=== PATIENT | male | born 1965 | race Caucasian/White ===

== ENCOUNTER 2024-02-04 17:28 | Emergency (ER) | payer BC, SELFPAY ==
[2024-02-04] VITALS (7 sets, daily range): BP systolic 123–139; BP diastolic 77–92; BMI 32.0
--- NOTE | 2024-02-04 18:11 | ED.GENMED ---
History of Present Illness
General
Chief Complaint: Chest Pain
Source: patient
Exam Limitations: none
Time Seen by Provider: 02/04/24 17:53
History of Present Illness
History of Present Illness:
This is a 58 year old male that comes in with multiple complaints. State that he awoke this morning at 9:30am and he took his shower. After his shower he started to feel lightheaded like he was going to fall over. States that then at 4pm he started
with this left sided chest pain that lasted an hour. States that he has had this before and he took Gas-X and this seemed to go away. Patient has no pain at this time. States that for the past 4-5 days he is also had a headache in his mid forehead.
States that he also has pain in the left thigh for the past 2 days. States that he has been SOB and just not felt right since there [place] in [place] States that he is also weaning off of his Oxycodone and he is down to 3 tablets from 8 tabs. Denies
any fever, chills, abd pain, nausea, vomiting, diarrhea, urinary burning.
Past History
Past History
ED Past Medical History: Cancer (Melanoma), GERD, HTN and Other (Back pain , Fatty liver, )
ED Past Surgical History: Appendectomy, Cholecystectomy, Orthopedic (Left femur surgery, Right shoulder lipoma removed. Rhizotomy lumbar spine) and Urological (Vasectomy)
Social History
Tobacco: Non-smoker
Alcohol: Occasional
Personal:
Living: with family
Review of Systems
Review of Systems
All Other Systems: ROS reviewed and negative except as documented in HPI and ROS
Constitutional: Reports no symptoms; Denies fever or chills
EENT: Reports no symptoms
Respiratory: Reports trouble breathing; Denies cough
Cardiac: Reports chest pain
ABD/GI: Denies abdominal pain, nausea, vomiting or diarrhea
: Reports no symptoms; Denies dysuria, frequency or urgency
Musculoskeletal: Reports no symptoms
Skin: Reports no symptoms
Neurological: Reports headache and other (Lightheaded); Denies dizzy
Psychiatric: Reports no symptoms
Phy Exam
General Physical Exam
General Presentation: well appearing and no apparent distress
General age: appears stated age
General Skin: warm and dry
General Habitus: normal
General Mental: alert
General Hydration: dry mucous membranes
ENT Exam
ENT Exam: TM's normal, pharynx normal and neck supple
Eye Exam
Eye Exam: EOMI
Cardiovascular Exam
Cardiovascular Exam: regular rate/rhythm, no edema, no murmur and normal peripheral pulses
Pulmonary Exam
Pulmonary Exam: lungs clear, no respiratory distress, no rales, chest non tender, no crackles, no rhonchi, no wheezing and no cough
Gastrointestinal Exam
Gastrointestinal Exam: normal bowel sounds, non tender, soft, no organomegaly, no pulsatile mass and non distended
Musculoskeletal Exam
Musculoskeletal Exam: full ROM, no edema and other (left leg negative for any redness or swelling)
Skin Exam
Skin Exam: normal color, warm/dry, no rash and no petechia
Psychiatric Exam
Psychiatric Exam: normal mood/affect
Scores
Heart Score for Chest Pain Patients
STEMI patient?: No
History: Slightly or Non-Suspicious
ECG: Normal
Age: >45 - <65 years
Risk Factors: No Risk Factors
Troponin: </= Normal Limit
Heart Score for Chest Pain Patients: 1
Heart Score Risk: 2.5% MACE over next 6 weeks
Course
Orders/Labs/Results
Orders:
Orders
02/04/24 17:30
Electrocardiogram (*1) Urgent
Reason for Study: Chest Pain
EKG- Treatment ONCE
02/04/24 18:10
CT Head W/o Iv Contrast Urgent
Comment:
Reason For Exam: Headache
0.9% Sodium Chloride 1000 ml [Nss] 1,000 ml IV BOLUS
US Legs, Left [US Periph Venous LOWER Ext LT] Urgent
Comment:
Reason For Exam: Pain left medial thigh
02/04/24 18:32
Complete Blood Count/With Diff Urgent
Comprehensive Metabolic Panel Urgent
D-Dimer Urgent
Manual Differential Urgent
Troponin I Urgent
02/04/24 19:03
CT Chest Pe Study Urgent
Comment:
Reason For Exam: Chest pain, elevated D-dimer
Abnormal Lab Results
02/04/24
18:32
RBC 4.65 L 10^6/uL
(4.70-6.10)
Hct 37.6 L %
(39.0-52.0)
D-Dimer 0.53 H ug/mlFEU
(0.00-0.50)
Potassium 3.4 L mmol/L
(3.5-5.1)
Glucose 135 H mg/dl
(70-99)
AST 67 H U/L
(17-59)
ALT 89 H U/L
(0-50)
Alkaline Phosphatase 170 H U/L
(38-126)
02/04/24 18:32
02/04/24 18:32
D-dimer slightly elevated at 0.53, Troponin <0.012, Glucose nonfasting. AST/ALT elevation (fatty liver), Alk phos elevation.
Vital Signs
Initial and Last Documented VS:
Initial Vital Signs
Temp Pulse Resp BP Pulse Ox
98.1 F 96 18 134/85 96
02/04/24 17:38 02/04/24 17:38 02/04/24 17:38 02/04/24 17:38 02/04/24 17:38
Last Documented Vital Signs
Temp Pulse Resp BP Pulse Ox
98.3 F 94 20 139/92 96
02/04/24 19:09 02/04/24 20:15 02/04/24 20:15 02/04/24 20:15 02/04/24 20:15
MDM/Problems Addressed
Differential Diagnosis Includes:
DVT, PE, GERD,
MDM/Problems Addressed:
This is a 58 year old male that comes in with multiple complaints. Patient c/o chest pain ,headache, left leg pain and SOB.
Will get labs, CT head and US leg.
Back into see patient. Reviewed labs. CT head, CT chest and US. Patient has no fever, cough or WBC count. Do not feel that this is a Pneumonia. Patient encouraged to watch for these things and if anything developed he will need to see his PCP.
Explained that this could be COPD. Patient to return with any concerns.
Chronic conditions affecting care:
GERD
Acute Exacerbation and/or Progression of Chronic Illness:
GERD
*Radiology
Radiology exam reviewed: radiology read reviewed (CT head-No acute intracranial abnormality noted. US-NO evidence of DVT of the left lower extremity. CT chest-NO evidence of pulmonary embolus. Bilateral upper lobe groundglass opacities which may
be due to developing Pneumonia. Interstitial lung disease and air-trapping due to COPD cannot be ) and other ( CT chest cont- air-trapping due to COPD cannot be excluded. New. Mild right lower lobe atelectasis versus scarring. New. )
*Pulse Oximetry
Patient hypoxic: no
*EKG
Interpreted by ED Provider?: Yes
Heart Rate: 91
Rate: normal
Rhythm: sinus
[place]: normal axis
Interval: normal interval
QRS Pattern: normal QRS
Ischemia: non-specific ST changes (V2, V3, V4, )
*Disability Insurance Hearing Officer Interpretation
Rate: normal
Heart Rate: 96
*Critical Care Note
Total Time (30-74mins, 75-104mins- exclusive of procedures): Not Applicable
ED Attending Note
-
Portions of this chart may have been created with voice recognition software.� Occasional wrong word or��sound alike� substitutions may have occurred due to the inherent limitations of voice recognition software.
Discharge Plan
Departure
Patient Disposition: Home (Routine Discharge)
Date of Disposition: 02/04/24
Time of Disposition: 21:09
Patient with high blood pressure during this ER visit?: Yes
Condition: Good
Covid-19: Not Applicable
Discharge Problem:
SOB (shortness of breath), Chest pain
Instructions: Shortness of Breath, Adult ED, Chest Pain PCP Follow Up, BLOOD PRESSURE
Prescriptions:
No Action
morphine 15 mg Tablet Extended Release
15 mg PO BID
oxycodone-acetaminophen 7.5-325 mg Tablet
1 tab PO Q8H
amlodipine-valsartan 5-160 mg Tablet
1 tab PO DAILY
fluoxetine 60 mg Tablet
60 mg PO DAILY
lactulose 20 gram/30 mL Solution
20 g PO DAILY
Referrals:
UNKNOWN - PT DOES,NOT KNOW [Family Provider] -
Activity Restrictions/Additional Instructions:
As discussed, your blood work shows that your liver enzymes are slightly elevated. This goes along with a fatty liver. Your CT of the head is normal along with the US of the left leg. Your CT of the chest shows a ground glass appearance in the upper
lobes which may be a developing Pneumonia. However, you have a normal White count, no fever and you are not coughing. This may be due to some air-trapping due to COPD. Please follow up with the family doctor for further evaluation. IF YOU HAVE ANY
FEVER, COUGH, INCREASED SHORTNESS OF BREATH OR YOU HAVE ANY OTHER CONCERNS PLEASE RETURN TO THE EMERGENCY ROOM.
Interventions
Interventions:
*Risk Screen - Suicide Last Done: 02/04/24 18:37
*General Assessment Last Done: 02/04/24 17:38
*Neglect/Abuse Screening Last Done: 02/04/24 18:37
ED- Fall Risk Assessment Last Done: 02/04/24 19:09
*ED COVID-19 Vaccine History Last Done: 02/04/24 17:38
ED- Cardiac Assessment Last Done: 02/04/24 19:09
Discharge Date and Time
Print Language: BELGIAN
[2024-02-04] MEDS: NSS 1000 IV (18:35)
[2024-02-04 18:49] LABS: Hematocrit 37.6 % (39.0-52.0); Mean Corp Hgb Conc. 34.6 g/dL (33.0-37.0); Mean Corpuscular Volume 80.9 fL (80.0-94.0); Mean Platelet Volume 8.5 fL (7.4-10.4); Platelet Count 236 10^3/uL (130-400); Red Blood Cell Count 4.65 10^6/uL (4.70-6.10); Red Cell Dist. Width 12.9 % (11.5-14.5); White Blood Cell Count 6.9 10^3/uL (4.8-10.8)
[2024-02-04 18:53] LABS: D-Dimer 0.53 ug/mlFEU (0.00-0.50)
[2024-02-04 19:02] LABS: Absolute Neutrophils -Man Diff 3.4 10^3/uL (1.4-6.5); Atypical Lymphocytes 16 %; Band Neutrophils 0 % (0-3); Eosinophils 3 % (0-6); Lymphocytes 24 % (20-51); Monocytes 6 % (2-9); Myelocytes 1 % (-); Normal RBC Morphology Yes; Platelets Checked Yes; Segmented Neutrophils 50 % (42-75); Troponin I < 0.012 ng/ml
[2024-02-04 19:03] LABS: Total Cells Counted 100
[2024-02-04 19:06] LABS: ALT (SGPT) 89 U/L (0-50); AST (SGOT) 67 U/L (17-59); Albumin 3.9 g/dl (3.5-5.0); Alkaline Phosphatase 170 U/L (38-126); Blood Urea Nitrogen 14 mg/dl (9-20); Carbon Dioxide 28 mmol/L (22-30); Chloride 102 mmol/L (98-107); Estimated Creatinine Clearance 118 ml/min; Glucose 135 mg/dl (70-99); Potassium 3.4 mmol/L (3.5-5.1); Sodium 137 mmol/L (135-145); Total Bilirubin 0.7 mg/dl (0.2-1.3); Total Protein 6.8 g/dl (6.3-8.2); eGFR > 60.00
== END 2024-02-04 22:35 | disposition home or self-care (01) ==
LOC: EMR 17:28
PROVIDERS: Clinical Nurse Specialist Family Health; EMERGENCY PHYSICIAN Emergency Medicine
DX: R07.89 Other chest pain (principal); R06.02 Shortness of breath; M79.652 Pain in left thigh; I10 Essential (primary) hypertension; K21.9 Gastro-esophageal reflux disease without esophagitis
CPT/HCPCS: 99285; 96360; 70450; 71275; 80053; 84484; 85025; 85379; 93005; 93971; Q9967

== ENCOUNTER 2024-02-08 12:38 | Emergency (ER) | payer BC, SELFPAY ==
[2024-02-08 12:46] VITALS: BP 108/73
--- NOTE | 2024-02-08 13:47 | ED.GENMED ---
History of Present Illness
General
Chief Complaint: Chest Pain
Time Seen by Provider: 02/08/24 13:38
History of Present Illness
History of Present Illness:
58-year-old male presents to the emergency department for evaluation of consistent chest discomfort, upper abdominal discomfort, shortness of breath, and generalized bodyaches. He was evaluated 4 days ago in this emergency department for the same
complaint at which time he had unremarkable labs with exception of an elevated D-dimer, subsequent PE study showed no evidence for pulmonary embolism however bilateral groundglass infiltrates were noted. This was felt to represent a chronic issue
and not any acute disease and thus he was not prescribed antibiotics. Denies any fevers or sweats. He suspects he may be reacting to a new type of chronic pain medication that he is currently on, states his medicine was provided by a new
[employer] services manager and wonders if this could be the case. In regards to the upper abdominal pain he notes that it resolved completely after eating but returned several hours later. Denies use of NSAIDs or tobacco
Past History
Past History
ED Past Medical History: Cancer (Melanoma), GERD, HTN and Other (Back pain , Fatty liver, )
ED Past Surgical History: Appendectomy, Cholecystectomy, Orthopedic (Left femur surgery, Right shoulder lipoma removed. Rhizotomy lumbar spine) and Urological (Vasectomy)
Social History
Tobacco: Non-smoker
Alcohol: Occasional
Personal:
Living: with family
Review of Systems
Review of Systems
Allergies reviewed?: Yes
All Other Systems: ROS reviewed and negative except as documented in HPI and ROS
Phy Exam
Physical Exam
Physical Exam:
GEN: Well appearing, NAD, WDWN
Eyes: PERRLA, EOMs intact, no scleral icterus
HENT: NCAT, oral mucosa moist
Lungs: CTAB, no wheezes, rales, rhonchi, normal chest wall excursion
Cardiac: RRR, no M/R/G, no peripheral edema. Radial pulses 2+ bilat
Abdomen: S, NT, ND, NABS, no masses or hepatosplenomegaly
Neuro: AO x 3
MSK: No gross deformity or ecchymosis.
Skin: No rashes, petechiae. Normal color, no pallor or jaundice.
Psych: Calm, cooperative, proper hygiene
Scores
Heart Score for Chest Pain Patients
STEMI patient?: Not applicable
Course
Orders/Labs/Results
Orders:
Orders
02/08/24 12:42
EKG [Electrocardiogram (*1)] Urgent
Reason for Study: Chest Pain
EKG- Treatment ONCE
02/08/24 13:47
CR Obstruct Series W/pa Chest Urgent
Comment:
Reason For Exam: upper abd pain, constipation
Vital Signs
Initial and Last Documented VS:
Initial Vital Signs
Temp Pulse Resp BP Pulse Ox
98 F 104 16 108/73 96
02/08/24 12:46 02/08/24 12:46 02/08/24 12:46 02/08/24 12:46 02/08/24 12:46
Last Documented Vital Signs
Temp Pulse Resp BP Pulse Ox
98 F 90 16 111/75 97
02/08/24 12:46 02/08/24 14:36 02/08/24 14:36 02/08/24 14:36 02/08/24 14:36
MDM/Problems Addressed
MDM/Problems Addressed:
I suspect his epigastric pain is peptic ulcer disease. Repeat chest x-ray shows no pulmonary infiltrates today. Will start the patient on PPIs, uncertain etiology to her shortness of breath but his oxygen saturation is adequate and he has no overt
symptoms of viral syndrome or pneumonia.
Comment
Comment:
EKG independently interpreted by me shows a sinus rhythm at a rate of 97 with a decreased NC interval, QTc of 459, no ischemic changes noted
*Critical Care Note
Total Time (30-74mins, 75-104mins- exclusive of procedures): Not Applicable
ED Attending Note
-
Portions of this chart may have been created with voice recognition software.� Occasional wrong word or��sound alike� substitutions may have occurred due to the inherent limitations of voice recognition software.
Discharge Plan
Departure
Patient Disposition: Home (Routine Discharge)
Date of Disposition: 02/08/24
Time of Disposition: 15:03
Patient with high blood pressure during this ER visit?: No
Discharge Problem:
Shortness of breath, Peptic ulcer disease
Prescriptions:
New
pantoprazole 40 mg tablet,delayed release (DR/EC)
40 mg PO DAILY 14 Days Qty: 14 0RF
No Action
amlodipine-valsartan 5-160 mg Tablet
1 tab PO DAILY
lactulose 20 gram/30 mL Solution
10 g PO DAILYPRN PRN (Reason: constipation)
acetaminophen [Tylenol Extra Strength] 500 mg Tablet
1,000 mg PO Q6HPRN PRN (Reason: mild pain)
oxycodone-acetaminophen [Endocet] 5-325 mg Tablet
1 tab PO Q8HPRN PRN (Reason: severe pain)
duloxetine 30 mg Capsule,Delayed Release(Dr/Ec)
30 mg PO BID
Referrals:
Berenice Bonilla CRNP [Family Provider] -
Interventions
Interventions:
*Risk Screen - Suicide Last Done: 02/08/24 12:46
*General Assessment Last Done: 02/08/24 12:46
*Neglect/Abuse Screening Last Done: 02/08/24 12:46
ED- Fall Risk Assessment Last Done: 02/08/24 15:05
*ED COVID-19 Vaccine History Last Done: 02/08/24 14:37
*Nursing Disposition Last Done: 02/08/24 15:05
ED- Cardiac Assessment Last Done: 02/08/24 14:45
Discharge Date and Time
Discharge Date/Time: 02/08/24 15:03
Print Language: AMHARIC
[2024-02-08 14:36] VITALS: BP 111/75; BMI 32.4
== END 2024-02-08 15:03 | disposition home or self-care (01) ==
LOC: EMR 12:38
PROVIDERS: EMERGENCY PHYSICIAN Student in an Organized Health Care Education/Training Program; FAMILY PHYSICIAN Nurse Practitioner
DX: K27.9 Peptic ulcer, site unspecified, unspecified as acute or chronic, without hemorrhage or perforation (principal); R06.02 Shortness of breath
CPT/HCPCS: 99284; 74022; 93005

== ENCOUNTER → 2024-04-29 13:36 | Outpatient (REF) | payer OTHER, SELFPAY | LOC: RAD 13:36 | PROVIDERS: ATTENDING PHYSICIAN Physician Assistant; FAMILY PHYSICIAN Nurse Practitioner | DX: C43.59 Malignant melanoma of other part of trunk (principal) | CPT/HCPCS: 71260; 74177; Q9967 ==